=== PATIENT | female | born 1990 | race Two or more races ===

== ENCOUNTER 2022-02-05 02:27 | Emergency (ER) | payer MEDICAID ==
[~2022-02-05] VITALS: Ht 157.5 cm; Wt 111.8 kg
[2022-02-05 04:30] VITALS: BP 152/98
== END 2022-02-05 04:00 | disposition home or self-care (01) ==
LOC: EMS 02:28
DX: R00.2 Palpitations (principal); F41.9 Anxiety disorder, unspecified; R42 Dizziness and giddiness; Z88.1 Allergy status to other antibiotic agents
CPT/HCPCS: 93005; 99283

== ENCOUNTER 2022-02-17 19:01 | Emergency (ER) | payer MEDICAID ==
[~2022-02-17] VITALS: Ht 157.5 cm; Wt 111.0 kg
[2022-02-17] MEDS ORDERED: FEXO-353 PO (19:26)
[2022-02-17 20:02] LABS: BASOPHILS % (AUTO) 0.8 % (0.0-2.0); EOSINOPHILS % (AUTO) 1.6 % (1.0-6.0); HEMATOCRIT 44.7 % (36-46); HEMOGLOBIN 15.1 g/dL (12.0-16.0); LYMPHOCYTES # (AUTO) 3.4 K/uL (1.0-4.8); LYMPHOCYTES % (AUTO) 32.4 % (22.0-44.0); MEAN CORPUSCULAR HEMOGLOBIN 29.4 pg (26.0-34.0); MEAN CORPUSCULAR HGB CONC 33.9 G/dL (31.0-37.0); MEAN CORPUSCULAR VOLUME 87 fL (80-100); MONOCYTES # (AUTO) 0.5 K/uL (0.1-1.0); MONOCYTES % (AUTO) 5.1 % (2.0-9.0); NEUTROPHILS # (AUTO) 6.3 K/uL (1.8-7.7); NEUTROPHILS % (AUTO) 60.1 % (40.0-70.0); PLATELET COUNT (AUTO) 343 K/uL (150-450); RED BLOOD CELL COUNT(AUTO) 5.15 MIL/uL (4.00-5.20); RED CELL DISTRIBUTION WIDTH 13.2 % (11.5-14.5)
[2022-02-17 20:11] LABS: ANION GAP 8 mmol/L (8-16); CARBON DIOXIDE 27 mmol/L (22-29); CHLORIDE 99 mmol/L (98-107); CREATININE 0.63 mg/dL (0.60-1.30); GLOMERULAR FILTR. RATE CALC > 60 mL/min (>60); GLUCOSE,RANDOM 94 mg/dL (70-110); POTASSIUM 3.7 mmol/L (3.5-5.1); SODIUM SERUM 134 mmol/L (136-145); UREA NITROGEN, BLOOD 7 mg/dL (7-18)
[2022-02-17 20:13] LABS: APPEARANCE,URINE CLEAR (CLEAR); BILIRUBIN,URINE NEGATIVE (NEGATIVE); GLUCOSE, URINE (UA) NEGATIVE (NEGATIVE); KETONES,URINE NEGATIVE (NEGATIVE); LEUKOCYTE ESTERASE ,URINE TRACE (NEGATIVE); NITRATE,URINE NEGATIVE (NEGATIVE); OCCULT BLOOD,URINE LARGE (NEGATIVE); PH,URINE 5.5 (5.0-8.0); PROTEIN,URINE NEGATIVE (NEGATIVE); SPECIFIC GRAVITIY, URINE 1.011 (1.003-1.030); UROBILINOGEN,URINE <=1.0 mg/dL (<=1.0)
[2022-02-17 20:22] LABS: ALANINE AMINOTRANSFERASE 62 U/L (12-78); ALBUMIN 4.3 g/dL (3.4-5.0); ALKALINE PHOSPHATASE 58 U/L (46-116); ASPARTATE AMINOTRANSFERASE 32 U/L (15-37); BILIRUBIN,TOTAL 0.3 mg/dL (0.1-1.0); HCG,QUANTITATIVE < 1 mIU/mL (0-6); LIPASE 179 U/L (73-393)
[2022-02-17 20:29] LABS: BACTERIA,URINE None Seen /HPF (None Seen)
[2022-02-17] MEDS ORDERED: ONDANSETRON HCL 4 MG TABLET PO ONE (21:15)
[2022-02-17] MEDS ORDERED: ACETAMINOPHEN 500 MG TABLET PO ONE (21:15)
[2022-02-17 23:00] VITALS: BP 126/88
== END 2022-02-17 22:30 | disposition home or self-care (01) ==
LOC: EMS 19:01
DX: R10.11 Right upper quadrant pain (principal); Z88.2 Allergy status to sulfonamides; Z79.899 Other long term (current) drug therapy
CPT/HCPCS: 36415; 74176; 76700; 80053; 81001; 83690; 84702; 85025; 99284; Q0162

== ENCOUNTER 2022-04-10 13:50 | Emergency (ER) | payer MEDICAID ==
[~2022-04-10] VITALS: Ht 157.5 cm; Wt 106.8 kg
[~2022-04-10 13:50] MED LIST: FEXO-353 PO
[2022-04-10 14:07] VITALS: BP 149/106
[2022-04-10] MEDS ORDERED: ATOR10TA84 PO (14:17)
[2022-04-10] MEDS ORDERED: IBUP-1554 PO (14:48)
[2022-04-10] MEDS ORDERED: HYDR-4723 PO (14:48)
[2022-04-10] MEDS ORDERED: GUAIFDM PO (14:48)
== END 2022-04-10 15:25 | disposition home or self-care (01) ==
LOC: EMS 13:51
DX: U07.1 COVID-19 (principal); J06.9 Acute upper respiratory infection, unspecified; E11.9 Type 2 diabetes mellitus without complications; E78.00 Pure hypercholesterolemia, unspecified; I10 Essential (primary) hypertension; J40 Bronchitis, not specified as acute or chronic; K76.0 Fatty (change of) liver, not elsewhere classified; Z88.1 Allergy status to other antibiotic agents
CPT/HCPCS: 99283; Z7502

== ENCOUNTER 2022-04-13 15:09 | Emergency (ER) | payer MEDICAID ==
[~2022-04-13] VITALS: Ht 157.5 cm; Wt 106.8 kg
[~2022-04-13 15:09] MED LIST changes: +ATOR10TA84 PO; +GUAIFDM PO; +HYDR-4723 PO; +IBUP-1554 PO
[2022-04-13 16:56] LABS: EOSINOPHILS % (AUTO) 2.2 % (1.0-6.0); HEMATOCRIT 42.4 % (36-46); HEMOGLOBIN 14.2 g/dL (12.0-16.0); LYMPHOCYTES # (AUTO) 2.7 K/uL (1.0-4.8); MEAN CORPUSCULAR HEMOGLOBIN 29.1 pg (26.0-34.0); MEAN CORPUSCULAR HGB CONC 33.5 G/dL (31.0-37.0); MEAN CORPUSCULAR VOLUME 87 fL (80-100); MONOCYTES # (AUTO) 0.3 K/uL (0.1-1.0); MONOCYTES % (AUTO) 4.8 % (2.0-9.0); NEUTROPHILS # (AUTO) 3.3 K/uL (1.8-7.7); PLATELET COUNT (AUTO) 257 K/uL (150-450); RED BLOOD CELL COUNT(AUTO) 4.89 MIL/uL (4.00-5.20); RED CELL DISTRIBUTION WIDTH 13.1 % (11.5-14.5)
[2022-04-13 17:09] LABS: ANION GAP 8 mmol/L (8-16); CALCIUM, TOTAL 8.9 mg/dL (8.8-10.5); CARBON DIOXIDE 26 mmol/L (22-29); CHLORIDE 103 mmol/L (98-107); GLUCOSE,RANDOM 113 mg/dL (70-110); POTASSIUM 3.7 mmol/L (3.5-5.1); SODIUM SERUM 137 mmol/L (136-145); UREA NITROGEN, BLOOD 6 mg/dL (7-18)
[2022-04-13 17:10] LABS: GLOMERULAR FILTR. RATE CALC > 60 mL/min (>60)
[2022-04-13 17:15] LABS: ALANINE AMINOTRANSFERASE 52 U/L (12-78); ALBUMIN 3.9 g/dL (3.4-5.0); ALKALINE PHOSPHATASE 52 U/L (46-116); ASPARTATE AMINOTRANSFERASE 24 U/L (15-37); BILIRUBIN,TOTAL 0.3 mg/dL (0.1-1.0); TOTAL PROTEIN, SERUM 8.1 g/dL (6.4-8.2)
[2022-04-13 18:55] VITALS: BP 141/87
== END 2022-04-13 19:19 | disposition home or self-care (01) ==
LOC: EMS 15:12
DX: R20.8 Other disturbances of skin sensation (principal); T50.995A Adverse effect of other drugs, medicaments and biological substances, initial encounter; F41.9 Anxiety disorder, unspecified; E78.00 Pure hypercholesterolemia, unspecified; I10 Essential (primary) hypertension; Z87.19 Personal history of other diseases of the digestive system; Z87.898 Personal history of other specified conditions; Z86.16 Personal history of COVID-19; Z88.2 Allergy status to sulfonamides; Y92.89 Other specified places as the place of occurrence of the external cause
CPT/HCPCS: 80053; 85025; 99283

== ENCOUNTER 2022-11-11 18:43 | Emergency (ER) | payer MEDICAID ==
[~2022-11-11] VITALS: Ht 154.9 cm; Wt 106.8 kg
[~2022-11-11 18:43] MED LIST changes: +ATOR10TA PO; -ATOR10TA84 PO; -GUAIFDM PO; -HYDR-4723 PO; -IBUP-1554 PO
[2022-11-11 18:50] VITALS: BP 155/90
[2022-11-11] MEDS ORDERED: ERYT3.5O8 OD (19:59)
== END 2022-11-11 20:20 | disposition home or self-care (01) ==
LOC: EMS 18:53
DX: B30.9 Viral conjunctivitis, unspecified (principal); E78.00 Pure hypercholesterolemia, unspecified; I10 Essential (primary) hypertension; Z98.890 Other specified postprocedural states; Z88.2 Allergy status to sulfonamides
CPT/HCPCS: 82962; 99283

== ENCOUNTER 2023-05-18 02:10 | Emergency (ER) | payer MEDICAID ==
[~2023-05-18] VITALS: Ht 154.9 cm; Wt 109.1 kg
[~2023-05-18 02:10] MED LIST changes: +ERYT3.5O8 OD
[2023-05-18 02:21] VITALS: BP 139/98; PULSE 65; RESP 17; TEMP 98.7
[2023-05-18] MEDS ORDERED: CETI-450 PO (02:25)
[2023-05-18] MEDS ORDERED: OMEP20 PO (02:25)
[2023-05-18 02:43] LABS: BASOPHILS % (AUTO) 1.2 % (0.0-2.0); EOSINOPHILS % (AUTO) 1.7 % (1.0-6.0); HEMATOCRIT 41.9 % (36-46); HEMOGLOBIN 13.9 g/dL (12.0-16.0); LYMPHOCYTES # (AUTO) 3.7 K/uL (1.0-4.8); LYMPHOCYTES % (AUTO) 35.4 % (22.0-44.0); MEAN CORPUSCULAR HEMOGLOBIN 29.2 pg (26.0-34.0); MEAN CORPUSCULAR HGB CONC 33.2 G/dL (31.0-37.0); MEAN CORPUSCULAR VOLUME 88 fL (80-100); MONOCYTES # (AUTO) 0.7 K/uL (0.1-1.0); NEUTROPHILS # (AUTO) 5.7 K/uL (1.8-7.7); NEUTROPHILS % (AUTO) 54.7 % (40.0-70.0); PLATELET COUNT (AUTO) 311 K/uL (150-450); RED BLOOD CELL COUNT(AUTO) 4.76 MIL/uL (4.00-5.20); RED CELL DISTRIBUTION WIDTH 13.1 % (11.5-14.5)
[2023-05-18 03:08] LABS: ANION GAP 6 mmol/L (8-16); CALCIUM, TOTAL 9.1 mg/dL (8.8-10.5); CARBON DIOXIDE 30 mmol/L (22-29); CHLORIDE 104 mmol/L (98-107); CREATININE 0.81 mg/dL (0.60-1.30); GLOMERULAR FILTR. RATE CALC > 60 mL/min (>60); GLUCOSE,RANDOM 133 mg/dL (70-110); POTASSIUM 3.9 mmol/L (3.5-5.1); SODIUM SERUM 140 mmol/L (136-145)
[2023-05-18 03:21] LABS: ALANINE AMINOTRANSFERASE 73 U/L (12-78); ALBUMIN 3.9 g/dL (3.4-5.0); ALKALINE PHOSPHATASE 60 U/L (46-116); ASPARTATE AMINOTRANSFERASE 42 U/L (15-37); BILIRUBIN,TOTAL 0.2 mg/dL (0.1-1.0); HCG,QUANTITATIVE < 1 mIU/mL (0-6)
[2023-05-18 04:04] LABS: APPEARANCE,URINE CLEAR (CLEAR); BILIRUBIN,URINE NEGATIVE (NEGATIVE); GLUCOSE, URINE (UA) NEGATIVE (NEGATIVE); KETONES,URINE NEGATIVE (NEGATIVE); LEUKOCYTE ESTERASE ,URINE NEGATIVE (NEGATIVE); NITRATE,URINE NEGATIVE (NEGATIVE); OCCULT BLOOD,URINE NEGATIVE (NEGATIVE); PROTEIN,URINE NEGATIVE (NEGATIVE); SPECIFIC GRAVITIY, URINE 1.005 (1.003-1.030); UROBILINOGEN,URINE <=1.0 mg/dL (<=1.0)
[2023-05-18 06:09] LABS: LIPASE 65 U/L (16-77)
== END 2023-05-18 05:46 | disposition home or self-care (01) ==
LOC: EMS 02:11
DX: N39.0 Urinary tract infection, site not specified (principal); M54.50 Low back pain, unspecified; E78.00 Pure hypercholesterolemia, unspecified; I10 Essential (primary) hypertension; K75.9 Inflammatory liver disease, unspecified; Z88.2 Allergy status to sulfonamides
CPT/HCPCS: 74022; 80053; 81003; 83690; 84702; 85025; 99284

== ENCOUNTER 2023-05-31 09:03 | Emergency (ER) | payer MEDICAID ==
[~2023-05-31] VITALS: Ht 154.9 cm; Wt 109.1 kg
[~2023-05-31 09:03] MED LIST changes: -ATOR10TA PO; +CETI-450 PO; -ERYT3.5O8 OD; -FEXO-353 PO; +OMEP20 PO
[2023-05-31 09:12] VITALS: TEMP 98.3
[2023-05-31] MEDS ORDERED: CHOL200059 PO (09:14)
[2023-05-31] MEDS ORDERED: METR500 PO (09:14)
[2023-05-31] MEDS ORDERED: LORA-999 PO (09:14)
[2023-05-31 09:55] LABS: BASOPHILS % (AUTO) 1.2 % (0.0-2.0); EOSINOPHILS % (AUTO) 2.1 % (1.0-6.0); HEMATOCRIT 45.4 % (36-46); HEMOGLOBIN 14.5 g/dL (12.0-16.0); LYMPHOCYTES # (AUTO) 3.9 K/uL (1.0-4.8); LYMPHOCYTES % (AUTO) 38.4 % (22.0-44.0); MEAN CORPUSCULAR HEMOGLOBIN 28.3 pg (26.0-34.0); MEAN CORPUSCULAR HGB CONC 31.9 G/dL (31.0-37.0); MEAN CORPUSCULAR VOLUME 89 fL (80-100); MONOCYTES # (AUTO) 0.5 K/uL (0.1-1.0); MONOCYTES % (AUTO) 4.4 % (2.0-9.0); NEUTROPHILS # (AUTO) 5.5 K/uL (1.8-7.7); NEUTROPHILS % (AUTO) 53.9 % (40.0-70.0); PLATELET COUNT (AUTO) 300 K/uL (150-450); RED BLOOD CELL COUNT(AUTO) 5.12 MIL/uL (4.00-5.20); RED CELL DISTRIBUTION WIDTH 13.3 % (11.5-14.5); WHITE BLOOD COUNT (AUTO) 10.2 K/uL (4.5-11.0)
[2023-05-31 10:08] LABS: ANION GAP 10 mmol/L (8-16); CALCIUM, TOTAL 8.8 mg/dL (8.8-10.5); CARBON DIOXIDE 28 mmol/L (22-29); CHLORIDE 101 mmol/L (98-107); CREATININE 0.56 mg/dL (0.60-1.30); GLOMERULAR FILTR. RATE CALC > 60 mL/min (>60); GLUCOSE,RANDOM 93 mg/dL (70-110); POTASSIUM 3.6 mmol/L (3.5-5.1); SODIUM SERUM 138 mmol/L (136-145); UREA NITROGEN, BLOOD 5 mg/dL (7-18)
[2023-05-31 10:13] LABS: ALANINE AMINOTRANSFERASE 98 U/L (12-78); ALKALINE PHOSPHATASE 55 U/L (46-116); ASPARTATE AMINOTRANSFERASE 54 U/L (15-37); BILIRUBIN,TOTAL 0.4 mg/dL (0.1-1.0); TOTAL PROTEIN, SERUM 8.1 g/dL (6.4-8.2)
[2023-05-31 10:26] LABS: PHOSPHORUS 3.7 mg/dL (2.5-4.9); TROPONIN I-HIGH SENSITIVITY 5 ng/L (<51)
[2023-05-31 11:02] VITALS: BP 138/86; PULSE 71; RESP 18
== END 2023-05-31 11:05 | disposition home or self-care (01) ==
LOC: EMS 09:09
DX: R20.2 Paresthesia of skin (principal); E78.00 Pure hypercholesterolemia, unspecified; I10 Essential (primary) hypertension; Z88.2 Allergy status to sulfonamides
CPT/HCPCS: 80053; 83735; 84100; 84484; 84703; 85025; 93005; 99284

== ENCOUNTER 2023-08-08 16:57 | Emergency (ER) | payer MEDICAID ==
[~2023-08-08] VITALS: Ht 157.5 cm; Wt 90.9 kg
[~2023-08-08 16:57] MED LIST changes: +CHOL200059 PO; +LORA-999 PO; +METR500 PO
[2023-08-08 17:06] VITALS: TEMP 97.9
[2023-08-08 17:26] VITALS: BP 114/79; PULSE 64; RESP 18
== END 2023-08-08 20:30 | disposition home or self-care (01) ==
LOC: EMS 16:58
DX: S93.401A Sprain of unspecified ligament of right ankle, initial encounter (principal); E78.00 Pure hypercholesterolemia, unspecified; I10 Essential (primary) hypertension; K75.9 Inflammatory liver disease, unspecified; Z88.2 Allergy status to sulfonamides; X58.XXXA Exposure to other specified factors, initial encounter; Y93.89 Activity, other specified; Y92.89 Other specified places as the place of occurrence of the external cause; Y99.8 Other external cause status
CPT/HCPCS: 99284; 73610-TC; 73630-TC; Z7502

== ENCOUNTER 2024-02-20 10:25 | Emergency (ER) | payer MEDICAID ==
[~2024-02-20] VITALS: Ht 160 cm; Wt 104.5 kg
[2024-02-20 10:29] VITALS: TEMP 98
[2024-02-20 12:55] VITALS: BP 136/78; PULSE 64; RESP 18
[2024-02-20] MEDS ORDERED: IBUP-1492 PO (13:13)
== END 2024-02-20 13:47 | disposition home or self-care (01) ==
LOC: EMS 10:25
DX: M25.562 Pain in left knee (principal); E78.00 Pure hypercholesterolemia, unspecified; I10 Essential (primary) hypertension; Z88.2 Allergy status to sulfonamides; Z98.890 Other specified postprocedural states
CPT/HCPCS: 99283

== ENCOUNTER 2025-01-03 14:05 | Emergency (ER) | payer MEDICAID ==
[~2025-01-03] VITALS: Ht 157.5 cm; Wt 106.8 kg
[~2025-01-03 14:05] MED LIST changes: +IBUP-1492 PO; -LORA-999 PO; +LORA0.5T20 PO; +OMEP-148 PO; -OMEP20 PO
[2025-01-03 14:09] VITALS: BP 158/85; PULSE 64; RESP 18; TEMP 98.5; O2SAT 98
[2025-01-03] MEDS ORDERED: OMEP20CA12 PO (14:10)
[2025-01-03] MEDS ORDERED: MELO-106 PO (14:10)
[2025-01-03 14:28] LABS: BASOPHILS % (AUTO) 1.3 % (0.0-2.0); EOSINOPHILS % (AUTO) 2.1 % (1.0-6.0); HEMATOCRIT 40.5 % (36-46); HEMOGLOBIN 13.4 g/dL (12.0-16.0); LYMPHOCYTES # (AUTO) 2.7 K/uL (1.0-4.8); LYMPHOCYTES % (AUTO) 31.7 % (22.0-44.0); MEAN CORPUSCULAR HEMOGLOBIN 28.9 pg (26.0-34.0); MEAN CORPUSCULAR VOLUME 88 fL (80-100); MONOCYTES # (AUTO) 0.6 K/uL (0.1-1.0); MONOCYTES % (AUTO) 7.3 % (2.0-9.0); NEUTROPHILS # (AUTO) 4.8 K/uL (1.8-7.7); NEUTROPHILS % (AUTO) 57.6 % (40.0-70.0); PLATELET COUNT (AUTO) 275 K/uL (150-450); RED BLOOD CELL COUNT(AUTO) 4.62 MIL/uL (4.00-5.20); RED CELL DISTRIBUTION WIDTH 13.3 % (11.5-14.5); WHITE BLOOD COUNT (AUTO) 8.4 K/uL (4.5-11.0)
[2025-01-03 14:36] LABS: ANION GAP 5 mmol/L (8-16); CALCIUM, TOTAL 8.7 mg/dL (8.8-10.5); CARBON DIOXIDE 28 mmol/L (22-29); CHLORIDE 103 mmol/L (98-107); CREATININE 0.44 mg/dL (0.60-1.30); GLOMERULAR FILTR. RATE CALC > 60 mL/min (>60); GLUCOSE,RANDOM 107 mg/dL (70-110); POTASSIUM 3.7 mmol/L (3.5-5.1); SODIUM SERUM 136 mmol/L (136-145); UREA NITROGEN, BLOOD 10 mg/dL (7-18)
[2025-01-03 14:44] LABS: TROPONIN I-HIGH SENSITIVITY Less Than 4 ng/L (<51)
== END 2025-01-03 15:44 | disposition home or self-care (01) ==
LOC: EMS 14:11
DX: R07.2 Precordial pain (principal); I10 Essential (primary) hypertension; E78.00 Pure hypercholesterolemia, unspecified; K21.9 Gastro-esophageal reflux disease without esophagitis; Z88.2 Allergy status to sulfonamides
CPT/HCPCS: 71045; 80048; 84484; 85025; 93005; 99285; 36415-L1; 36415-TC